=== PATIENT | male | born 1945 | race Caucasian/White ===

== ENCOUNTER → 2023-05-23 09:35 | Outpatient (REF) | payer MEDICARE, OTHER, SELFPAY | LOC: HWRAD 09:35 | PROVIDERS: ATTENDING PHYSICIAN Physician Assistant; REFERRING PHYSICIAN Urology | DX: R10.9 Unspecified abdominal pain (principal); R31.1 Benign essential microscopic hematuria; Z87.442 Personal history of urinary calculi | CPT/HCPCS: 74176 ==

== ENCOUNTER → 2023-05-30 14:27 | Outpatient (REF) | payer MEDICARE, OTHER, SELFPAY | LOC: HWRAD 14:27 | PROVIDERS: ATTENDING PHYSICIAN Urology; FAMILY PHYSICIAN Internal Medicine | DX: N20.1 Calculus of ureter (principal) | CPT/HCPCS: 74018 ==

== ENCOUNTER → 2024-01-22 20:31 | Outpatient (REF) | payer MEDICARE, OTHER, SELFPAY | LOC: MRI 3T 20:31 | PROVIDERS: ATTENDING PHYSICIAN Registered Nurse Lactation Consultant; FAMILY PHYSICIAN Internal Medicine | DX: H46.12 Retrobulbar neuritis, left eye (principal) | CPT/HCPCS: 70543; 70553; A9575 ==

== ENCOUNTER → 2024-02-26 14:50 | Outpatient (REF) | payer MEDICARE, OTHER, SELFPAY | LOC: HWRCS 14:50 | PROVIDERS: ATTENDING PHYSICIAN Internal Medicine | DX: I63.81 Other cerebral infarction due to occlusion or stenosis of small artery (principal); H54.62 Unqualified visual loss, left eye, normal vision right eye; I34.1 Nonrheumatic mitral (valve) prolapse; I49.3 Ventricular premature depolarization | CPT/HCPCS: 93306 ==

== ENCOUNTER → 2024-12-25 08:08 | Outpatient (REF) | payer MEDICARE, OTHER, SELFPAY | LOC: HWRCS 08:08 | PROVIDERS: ATTENDING PHYSICIAN Internal Medicine | DX: I63.81 Other cerebral infarction due to occlusion or stenosis of small artery (principal) | CPT/HCPCS: 93306 ==

== ENCOUNTER → 2025-01-05 15:08 | Outpatient (REF) | payer MEDICARE, OTHER, SELFPAY | LOC: RAD 15:08 | PROVIDERS: ATTENDING PHYSICIAN Internal Medicine | DX: I63.81 Other cerebral infarction due to occlusion or stenosis of small artery (principal); H54.62 Unqualified visual loss, left eye, normal vision right eye; I34.1 Nonrheumatic mitral (valve) prolapse; I49.3 Ventricular premature depolarization | CPT/HCPCS: 93880 ==